=== PATIENT | female | born 1975 | race Caucasian/White ===

== ENCOUNTER 2023-06-12 09:42 | Emergency (ER) | payer OTHER, SELFPAY ==
[2023-06-12 09:49] VITALS: BP 108/76
--- NOTE | 2023-06-12 10:42 | ED.SKININJ ---
HPI-Injury
General
Chief Complaint: Skin Problem
Source: patient
Exam Limitations: none
Time Seen by Provider: 06/12/23 10:30
Travel History
Have you had any contact with someone who has COVID-19?: No
Do you have any symptoms of coronavirus? Fever > 100 degrees, chills, cough, shortness of breath, sore throat, loss of taste or smell, muscle aches, or headache?: No
History of Present Illness-Injury
Initial Injury comments:
48-year-old female presents complaining of increasing pain to the tailbone area over the past 5 days. She notes swelling redness but no drainage. Seen initially today at the urgent care but was sent here for possible abscess drainage. She denies
fevers. She not diabetic. Hurts to sit and move. No other complaints at this time
Past History
Past History
ED Past Medical History: HTN and Other (migraine ); Negative Asthma or CAD
ED Past Surgical History: Negative Cardiac or Orthopedic
Social History
Alcohol: Occasional
Drug: None
Personal:
Living: with family
Employment: Employed
Family History
Family History: Hypertension; Negative Early CAD
Phy Exam
Physical Exam
Physical Exam:
General: Uncomfortable appearing female no acute distress
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 There is erythema induration send fluctuance noted over the midline of the buttock superiorly. No active drainage. This is tender to the touch. No
perirectal involvement
Extremities: No cyanosis
Course
Vital Signs
Initial and Last Documented VS:
Initial Vital Signs
Temp Pulse Resp BP Pulse Ox
99.4 F 108 18 108/76 100
06/12/23 09:49 06/12/23 09:49 06/12/23 09:49 06/12/23 09:49 06/12/23 09:49
Last Documented Vital Signs
Temp Pulse Resp BP Pulse Ox
99.4 F 108 18 108/76 100
06/12/23 09:49 06/12/23 09:49 06/12/23 09:49 06/12/23 09:49 06/12/23 09:49
Procedures
Incision/Drainage/Joint Aspiration
Buttock:
Anethesia: 1% Lidocaine with Epi
Preparation: cleaned with alcohol wipe
Type of procedure: incise and drain
Nature of site: abscess
Description of abscess: greater than 3cm
Loculations broken up: Yes
How much fluid was obtained?: large amount
Fluid description: purulent
Treatment: left open for drainage and antibiotics started
MDM/Problems Addressed
Differential Diagnosis Includes:
Erythema swelling and pain to the tailbone area. Consider abscess versus infected pilonidal cyst. No signs of hemorrhoids on exam. No sign of perirectal abscess
Will recommend incision and drainage of the abscess
*Critical Care Note
Total Time (30-74mins, 75-104mins- exclusive of procedures): Not Applicable
Update Note
Update Note:
The abscess was incised and drained and a large amount of purulent material was received. Patient was started on doxycycline. She does have antibiotic allergies to sulfa. Recommended warm soaks. Return precautions were given
ED Attending Note
-
Portions of this chart may have been created with voice recognition software.� Occasional wrong word or��sound alike� substitutions may have occurred due to the inherent limitations of voice recognition software.
Discharge Plan
Departure
Patient Disposition: Home (Routine Discharge)
Date of Disposition: 06/12/23
Time of Disposition: 11:17
Patient with high blood pressure during this ER visit?: No
Discharge Problem:
Infected pilonidal cyst
Prescriptions:
New
doxycycline hyclate 100 mg capsule
100 mg PO BID Qty: 14 0RF
No Action
zolmitriptan [Zomig] 2.5 MG tablet
2.5 mg PO PRN PRN
ondansetron HCl [Zofran] 4 MG/5 ML solution
4 mg PO PRN PRN
clonazepam [Klonopin] 2 MG tablet
2 mg PO TIDPRN PRN
propranolol 80 MG capsule,extended release 24 hr
80 mg PO DAILY
valsartan-hydrochlorothiazide [Diovan HCT] 1 TAB tablet
1 tab PO DAILY
Celexa
30 mg PO DAILY
azithromycin 250 MG tablet
250 mg PO DAILY Qty: 4 0RF
prednisone 20 MG tablet
20 mg PO BID Qty: 10 0RF
albuterol sulfate 90 MCG/PUFF HFA aerosol inhaler
1 puff inhalation R Q4HPRN PRN (Reason: cough, wheeze) Qty: 1 0RF
oxycodone-acetaminophen 5 MG/325 MG tablet
1 tab PO .Q4-6HPRN PRN (Reason: pain) Qty: 20 0RF
diazepam 5 MG tablet
5 mg PO TIDPRN PRN (Reason: muscle spasm) Qty: 10 0RF
hydrocodone-acetaminophen [Vicodin] 1 EACH tablet
1 ea PO Q4HPRN PRN (Reason: severe pain) Qty: 10 0RF
Referrals:
Owen Meehan MD [Family Provider] -
Activity Restrictions/Additional Instructions:
You may use warm soaks or compresses. Take antibiotics as directed. You may use ibuprofen or Tylenol for pain. Return here for increasing swelling redness or pain
Interventions
Interventions:
*ED COVID-19 Vaccine History Last Done: 06/12/23 09:53
== END 2023-06-12 11:36 | disposition home or self-care (01) ==
LOC: EMR 09:42
PROVIDERS: EMERGENCY PHYSICIAN Emergency Medicine; FAMILY PHYSICIAN Family Medicine
DX: L05.91 Pilonidal cyst without abscess (principal); Z88.2 Allergy status to sulfonamides
CPT/HCPCS: 10080; 99283